=== PATIENT | female | born 1940 | race Caucasian/White ===

== ENCOUNTER 2016-10-04 12:17 | Emergency (ER) | payer MEDICARE, OTHER ==
[~2016-10-04] VITALS: Ht 154.9 cm; Wt 86.0 kg
[~2016-10-04 12:17] MED LIST: ACET325T PO; ASPI81TA81; ATOR10TA15 PO; CALCCHW25 CHEW; COQ-50CA2; LISI10TA3 PO; MAGN250T14; META48.53 PO; METF500T PO; METO50TA PO; OMEGCAP PO; OMEP20TA PO; PRED5TAB PO; THER650C; VITA100T5 PO
[2016-10-04] MEDS ORDERED: SODIUM CHLOR 0.9% 1000 ML INJ 1,000 ML IV SCH (12:27)
[2016-10-04] MEDS ORDERED: SODIUM CHLORIDE 0.9% FLUSH 10 ML FLUSH IV FLUSH PRN (12:30)
[2016-10-04 12:35] VITALS: RESP 16; O2SAT 95
[2016-10-04 12:45] VITALS: BP 138/69; PULSE 70; RESP 16; TEMP 97.9; O2SAT 98
--- NOTE | 2016-10-04 13:27 | PD ---
HPI Chief Complaint: Abdominal Pain Time Seen by Provider: 12:26 Travel History International Travel<30 days: Yes Contact w/Intl Traveler<30days: Yes Name of Country Traveled to: [place] Traveled to known affect area: No History of Present Illness HPI 76-year-old female arrives complaining of left lower quadrant pain for about 5 days or so. She just returned from a cruise. Pain is worse with palpation. She denies fever. She states it feels similar to diverticulitis episodes from the past. Timing constant. PFSH Past Medical History Hx Anticoagulant Therapy: No Arthritis: Yes (POLYMYALGIA RHEUMATICA) Asthma: No Autoimmune Disease: No Blood Disorders: No Heart Rhythm Problems: No Cancer: No Cardiovascular Problems: No High Cholesterol: Yes Chemotherapy: No Chest Pain: No Congestive Heart Failure: No COPD: Yes Cerebrovascular Accident: No Diabetes: Yes Patient Takes Glucophage: Yes Diminished Hearing: No Diverticulitis: Yes Endocrine: No Gastrointestinal Disorders: Yes (DIVERTICULITIS) GERD: Yes Genitourinary: Yes (UTI) Headaches: Yes Hepatitis: No Hiatal Hernia: Yes Hypertension: Yes Immune Disorder: No Kidney Stones: No Musculoskeletal: Yes (PROTRUDING L4-L5, DEGENERATIVE JOINT DISEASE) Neurologic: Yes Psychiatric: No Reproductive: No Respiratory: Yes (COPD) Migraines: No Renal Failure: No Seizures: No Sleep Apnea: No Thyroid Disease: No Ulcer: No Tetanus Vaccination: > 5 Years Influenza Vaccination: Yes PNEUMOCCOCAL Vaccine (Year): 2009 ?: Not Tubal Ligation: Yes Past Surgical History Abdominal Surgery: Yes (Colonectomy) AICD: No Appendectomy: Yes Arteriovenous Shunt: No Body Medical Devices: NONE Cardiac Surgery: No Section: Yes Ear Surgery: No Endocrine Surgery: No Eye Surgery: Yes (garo cataract surgery) Genitourinary Surgery: Yes (bladder tuck) Gynecologic Surgery: Yes (hysterectomy) Hysterectomy: Yes Insulin Pump: No Joint Replacement: No Oral Surgery: Yes (t and a) Pacemaker: No Thoracic Surgery: No Tonsillectomy: Yes (AND ADNOIDS) Other Surgery: Yes Social History Alcohol Use: No Tobacco Use: No Substance Use: No Allergies-Medications (Allergen,Severity, Reaction): Coded Allergies: Adhesives (Verified Allergy, Severe, skin turns red, 10/04/16) Codeine (Verified Allergy, Severe, gi upset, 10/04/16) Darvon (Verified Allergy, Severe, 10/04/16) n/v Dilaudid (Verified Allergy, Severe, 10/04/16) Morphine (Verified Allergy, Severe, headaches, 10/04/16) Naproxen (Verified Allergy, Severe, 10/04/16) Percocet (Verified Allergy, Severe, headache, 10/04/16) Sulfa (Verified Allergy, Severe, hives, 10/04/16) Amoxicillin (Verified Allergy, Unknown, UNKNOWN, 10/04/16) UNABLE TO OBTAIN Cefuroxime sodium (Verified Allergy, Unknown, 10/04/16) Reported Meds & Prescriptions Reported Meds & Active Scripts Active Flagyl (Metronidazole) 500 Mg Tab 500 Mg PO TID 10 Days Cipro (Ciprofloxacin HCl) 500 Mg Tab 500 Mg PO BID 10 Days Reported Theracran Hp (Cranberry (Vaccinium Macrocarpon)) 180 Mg Cap Aspir-81 (Aspirin) 81 Mg Tabdr Magnesium Oxide 250 Mg Tab Coq-10 (Coenzyme Q10 (Ubidecarenone)) 50 Mg Cap Vitamin C (Ascorbic Acid) 100 Mg Tab 100 Mg PO Acetaminophen 325 Mg Tab 325 Mg PO Q4-6H PRN Metamucil Original Texture (Psyllium Hydrophilic Mucilloid) 48.57 % Pow 1 Scoop PO TID PRN 1 rounded TEASPOON in 8 oz of liquid at the first sign of irregularity. [place]-3 Fish Oil/Vitamin (Fish Oil-Cholecalciferol) 1,000-1,000 Mg Cap 1 Cap PO DAILY Calcium + D & K (Calcium-Vitamins D & K) 500-1,000-40 Mg-Unit-Mcg Chew 1 Tab CHEW Atorvastatin (Atorvastatin Calcium) 10 Mg Tab 10 Mg PO HS Prednisone 5 Mg Tab 5 Mg PO DAILY Metformin (Metformin HCl) 500 Mg Tab 500 Mg PO BIDPC With meals Lisinopril 10 Mg Tab 10 Mg PO DAILY Metoprolol Tartrate 50 Mg Tab 50 Mg PO BID Omeprazole 20 Mg Tab 20 Mg PO DAILY Review of Systems Except as stated in HPI: all other systems reviewed are Neg General / Constitutional: No: Fever Gastrointestinal: Positive: Abdominal Pain Physical Exam Narrative GENERAL: 75-year-old female pleasant well-nourished well-developed, no acute distress. SKIN: Focused skin assessment warm/dry. HEAD: Atraumatic. Normocephalic. EYES: Pupils equal and round. No scleral icterus. No injection or drainage. ENT: No nasal bleeding or discharge. Mucous membranes pink and moist. NECK: Trachea midline. No JVD. CARDIOVASCULAR: Regular rate and rhythm. No murmur appreciated. RESPIRATORY: No accessory muscle use. Clear to auscultation. Breath sounds equal bilaterally. GASTROINTESTINAL: Soft. Tenderness to palpation left lower quadrant. MUSCULOSKELETAL: No obvious deformities. No clubbing. No cyanosis. No edema. NEUROLOGICAL: Awake and alert. No obvious cranial nerve deficits. Motor grossly within normal limits. Normal speech. PSYCHIATRIC: Appropriate mood and affect; insight and judgment normal. Data Data Last Documented VS Vital Signs Date Time Temp Pulse Resp B/P Pulse Ox O2 Delivery O2 Flow Rate FiO2 10/04/16 15:00 97.2 68 16 138/65 100 Room Air VS reviewed Orders Complete Blood Count With Diff (10/04/16 12:27) Comprehensive Metabolic Panel (10/04/16 12:27) Lipase (10/04/16 12:27) Urinalysis - C+S If Indicated (10/04/16 12:27) Iv Access Insert/Monitor (10/04/16 12:27) Ecg Monitoring (10/04/16 12:27) Oximetry (10/04/16 12:27) Sodium Chlor 0.9% 1000 Ml Inj (Ns 1000 M (10/04/16 12:27) Sodium Chloride 0.9% Flush (Ns Flush) (10/04/16 12:30) Ct Abd/Pel W Iv Contrast(Rout) (10/04/16 14:49) Ciprofloxacin (Cipro) (10/04/16 15:00) Metronidazole (Flagyl) (10/04/16 15:00) Iohexol 350 Inj (Omnipaque 350 Inj) (10/04/16 15:22) Labs Laboratory Tests Test 10/04/16 12:10 White Blood Count 11.8 TH/MM3 Red Blood Count 4.06 MIL/MM3 Hemoglobin 11.9 GM/DL Hematocrit 36.9 % Mean Corpuscular Volume 90.9 FL Mean Corpuscular Hemoglobin 29.4 PG Mean Corpuscular Hemoglobin 32.4 % Concent Red Cell Distribution Width 14.4 % Platelet Count 272 TH/MM3 Mean Platelet Volume 8.9 FL Neutrophils (%) (Auto) 78.0 % Lymphocytes (%) (Auto) 12.9 % Monocytes (%) (Auto) 7.2 % Eosinophils (%) (Auto) 1.1 % Basophils (%) (Auto) 0.8 % Neutrophils # (Auto) 9.2 TH/MM3 Lymphocytes # (Auto) 1.5 TH/MM3 Monocytes # (Auto) 0.8 TH/MM3 Eosinophils # (Auto) 0.1 TH/MM3 Basophils # (Auto) 0.1 TH/MM3 CBC Comment DIFF FINAL Differential Comment Urine Color LIGHT-YELLOW Urine Turbidity CLEAR Urine pH 5.5 Urine Specific [place] 1.005 Urine Protein NEG mg/dL Urine Glucose (UA) NEG mg/dL Urine Ketones NEG mg/dL Urine Occult Blood NEG Urine Nitrite NEG Urine Bilirubin NEG Urine Urobilinogen LESS THAN 2.0 MG/DL Urine Leukocyte Esterase NEG Urine Squamous Epithelial <1 /hpf Cells Microscopic Urinalysis Comment CULT NOT INDICATED Sodium Level 137 MEQ/L Potassium Level 5.0 MEQ/L Chloride Level 108 MEQ/L Carbon Dioxide Level 19.6 MEQ/L Anion Gap 9 MEQ/L Blood Urea Nitrogen 27 MG/DL Creatinine 0.96 MG/DL Estimat Glomerular Filtration 57 ML/MIN Rate Random Glucose 123 MG/DL Calcium Level 9.4 MG/DL Total Bilirubin 0.3 MG/DL Aspartate Amino Transf 33 U/L (AST/SGOT) Alanine Aminotransferase 31 U/L (ALT/SGPT) Alkaline Phosphatase 89 U/L Total Protein 7.5 GM/DL Albumin 3.9 GM/DL Lipase 293 U/L [facility] Medical Decision Making Medical Screen Exam Complete: Yes Emergency Medical Condition: Yes Medical Record Reviewed: Yes Differential Diagnosis Constipation, Gastritis, Acute Cholecystitis, Biliary Colic, Pancreatitis, BEST , Hepatitis, Bowel Obstruction, Cystitis, Mesenteric Ischemia, AAA, Appendicitis , Renal Stone/Hydronephrosis, GERD, perforated viscous Narrative Course CBC & BMP Diagram 10/04/16 12:10 LFTs normal Lipase 293 UA: No UTI Last 24 hours Impressions Abdomen/Pelvis CT 10/04/16 1449 Signed Impressions: Service Date/Time: Thursday, October 04, 2016 15:11 - CONCLUSION: Chronic vascular calcifications and stool. Smiley Payne MD The patient is resting comfortably and feels better, is alert and in no distress. The patients results and examination findings were discussed. The repeat examination is unremarkable and benign. The history, exam, diagnostic testing, and current condition do not suggest any significant pathology to warrant further testing, continued ED treatment, admission, or surgical evaluation at this point. The vital signs have been stable. The patient does not have uncontrollable pain, intractable vomiting, or other significant symptoms. The patient's condition is stable and appropriate for discharge. The patient will pursue further outpatient evaluation with a primary care physician or other designated or consulting physician as indicated in the discharge instructions. The patient expressed understanding and was agreeable with this plan. Diagnosis Primary Impression: Abdominal pain Qualified Code: R10.32 - Left lower quadrant pain Additional Impression: Constipation Qualified Code: K59.00 - Constipation, unspecified constipation type Referrals: Primary Care Physician 2 days Additional Instructions: You have a choice when it comes to health care, and we are glad that you chose [facility]. Hopefully, we have met your expectations on today's visit. You are welcome to return to [facility] at any time, as we are committed to meeting the health care needs of our community. Med/Other Pt SpecificInfo: Prescription(s) given Disposition: DISCHARGE HOME Condition: Max uLther MD Oct 04, 2016 13:27
[2016-10-04 13:43] LABS: BLOOD, URINE NEG (NEG); GLUCOSE,URINE NEG (NEG); KETONE, URINE NEG (NEG); NITRITE,URINE NEG (NEG); PH, URINE 5.5 (5.0-8.5); SQUAMOUS EPITHELIAL CELL URINE <1 /hpf (0-5); URINE COLOR LIGHT-YELLOW (YELLW/STRAW)
[2016-10-04 13:45] LABS: COMMENT (UR) CULT NOT INDICATED; CULTURE IF INDICATED CULT NOT INDICATED
[2016-10-04 13:47] LABS: AUTOMATED NEUTROPHIL # 9.2 TH/MM3 (1.8-7.7); BASOPHIL # 0.1 TH/MM3 (0-0.2); BASOPHIL % 0.8 % (0.0-2.0); EOSINOPHIL # 0.1 TH/MM3 (0-0.4); EOSINOPHIL % 1.1 % (0.0-4.0); HEMATOCRIT 36.9 % (35.0-46.0); HEMO FLAGS DIFF FINAL; LYMPH % 12.9 % (9.0-44.0); LYMPHOCYTE # 1.5 TH/MM3 (1.0-4.8); MEAN CELL VOLUME 90.9 FL (80.0-100.0); MEAN CORPUSCULAR HEMOGLOBIN 29.4 PG (27.0-34.0); MEAN CORPUSCULAR HGB CONC 32.4 % (32.0-36.0); MONO % 7.2 % (0.0-8.0); PLATELET COUNT 272 TH/MM3 (150-450); RED BLOOD COUNT 4.06 MIL/MM3 (4.00-5.30); RED CELL DISTRIBUTION WIDTH 14.4 % (11.6-17.2); WHITE BLOOD COUNT 11.8 TH/MM3 (4.0-11.0)
[2016-10-04] MEDS ORDERED: CIPR-9 PO (14:14)
[2016-10-04] MEDS ORDERED: METR-1 PO (14:14)
[2016-10-04 14:24] LABS: ALKALINE PHOSPHATASE 89 U/L (45-117); ALT (GPT) 31 U/L (10-53); TOTAL BILIRUBIN ADULT 0.3 MG/DL (0.2-1.0)
[2016-10-04 14:34] LABS: ANION GAP 9 MEQ/L (5-15); AST (GOT) 33 U/L (15-37); BICARBONATE 19.6 MEQ/L (21.0-32.0); BLOOD UREA NITROGEN 27 MG/DL (7-18); CHLORIDE 108 MEQ/L (98-107); GLOMERULAR FILTRATION RATE 57 ML/MIN (>89); SODIUM (NA) 137 MEQ/L (136-145)
[2016-10-04 15:00] VITALS: BP 138/65; PULSE 68; RESP 16; TEMP 97.2; O2SAT 100
[2016-10-04] MEDS ORDERED: metroNIDAZOLE 500 MG TAB PO ONE (15:00)
[2016-10-04] MEDS ORDERED: CIPROFLOXACIN 500 MG TAB PO ONE (15:00)
[2016-10-04] MEDS ORDERED: IOHEXOL 350 MG/ML 10 ML VIAL (for RAD DIAG) IV ONE (15:22)
--- NOTE | 2016-10-04 15:41 | RADRPT ---
EXAM DATE/TIME: 10/04/2016 15:11 [facility] COMPARISON: CT ABDOMEN & PELVIS W CONTRAST, November 09, 2010, 12:34. INDICATIONS : Left lower quadrant pain for five days. IV CONTRAST: 92 cc Omnipaque 350 (iohexol) IV ORAL CONTRAST: No oral contrast ingested. RADIATION DOSE: 9.96 CTDIvol (mGy) MEDICAL HISTORY : Hypertension. Diverticulitis. Hernia, hiatal. SURGICAL HISTORY : Appendectomy. Hysterectomy.Bladder surgery. Lumbar surgery. ENCOUNTER: Initial ACUITY: 4 - 6 days PAIN SCALE: 7/10 LOCATION: Left lower quadrant TECHNIQUE: Volumetric scanning of the abdomen and pelvis was performed. Using automated exposure control and adjustment of the mA and/or kV according to patient size, radiation dose was kept as low as reasonably achievable to obtain optimal diagnostic quality images. FINDINGS: CT Abdomen: The liver, spleen, pancreas, right kidney, adrenals are unremarkable. There is no evidenc e for any appreciable pathological adenopathy, free fluid, or bowel obstruction. Subcentimeter calcif ied one is present in right middle lobe. Approximate 1.2 cm simple cyst is present in the left kidney not present previously, however has the appearance of a simple cyst. Chronic vascular calcifications are present involving the aorta, iliac arteries without any significant stenosis or aneurysmal dilat ations for technique. CT pelvis: There is no evidence for mass, abscess formation, or any significant adenopathy within the pelvis. There are postsurgical changes at L4-5 and L5-S1 with mild anterior wedging of L3. There is moderate amount of stool throughout the colon. CONCLUSION: Chronic vascular calcifications and stool. Smiley Payne MD on October 04, 2016 at 15:35 Board Certified Radiologist. This report was verified electronically.
== END 2016-10-04 18:56 | disposition home or self-care (01) ==
LOC: NEPC 12:17
DX: R10.32 Left lower quadrant pain (principal); K59.00 Constipation, unspecified; E11.9 Type 2 diabetes mellitus without complications; I10 Essential (primary) hypertension; E78.00 Pure hypercholesterolemia, unspecified; Z79.84 Long term (current) use of oral hypoglycemic drugs; Z87.39 Personal history of other diseases of the musculoskeletal system and connective tissue; Z87.09 Personal history of other diseases of the respiratory system; Z87.19 Personal history of other diseases of the digestive system; Z87.448 Personal history of other diseases of urinary system; Z86.69 Personal history of other diseases of the nervous system and sense organs
CPT/HCPCS: 74177; 80053; 81001; 83690; 85025; 96360; 96361; 99284; J7030; Q9967

== ENCOUNTER 2017-06-17 19:24 | Emergency (ER) | payer MEDICARE, OTHER ==
[~2017-06-17 19:24] MED LIST changes: -OMEP20TA PO; +OMEP20TA93 PO
[2017-06-17 19:27] VITALS: BP 184/78; PULSE 81; RESP 16; TEMP 97.9; O2SAT 97
[2017-06-17 20:30] LABS: AUTOMATED NEUTROPHIL # 5.4 TH/MM3 (1.8-7.7); BASOPHIL # 0.1 TH/MM3 (0-0.2); BASOPHIL % 1.2 % (0.0-2.0); EOSINOPHIL # 0.3 TH/MM3 (0-0.4); EOSINOPHIL % 3.5 % (0.0-4.0); HEMOGLOBIN 10.9 GM/DL (11.6-15.3); LYMPH % 22.4 % (9.0-44.0); LYMPHOCYTE # 1.9 TH/MM3 (1.0-4.8); MEAN CELL VOLUME 92.8 FL (80.0-100.0); MEAN CORPUSCULAR HEMOGLOBIN 30.8 PG (27.0-34.0); MEAN CORPUSCULAR HGB CONC 33.1 % (32.0-36.0); MEAN PLATELET VOLUME 8.9 FL (7.0-11.0); MONO % 10.2 % (0.0-8.0); MONOCYTE # 0.9 TH/MM3 (0-0.9); NEUT % 62.7 % (16.0-70.0); PLATELET COUNT 257 TH/MM3 (150-450); RED BLOOD COUNT 3.55 MIL/MM3 (4.00-5.30); RED CELL DISTRIBUTION WIDTH 13.4 % (11.6-17.2); WHITE BLOOD COUNT 8.7 TH/MM3 (4.0-11.0)
--- NOTE | 2017-06-17 20:38 | RADRPT ---
EXAM DATE/TIME: 06/17/2017 20:14 [facility] COMPARISON: CHEST PA & LAT, January 27, 2015, 13:45. INDICATIONS : Shortness of breath for 4 days MEDICAL HISTORY : Hypertension. Hypercholesterolemia. Chronic obstructive pulmonary disease. SURGICAL HISTORY : None. ENCOUNTER: Initial ACUITY: 4 - 6 days PAIN SCORE: 0/10 LOCATION: Bilateral chest FINDINGS: PA and lateral views of the chest demonstrate the lungs to be symmetrically aerated without evidence of mass, infiltrate or effusion. The cardiomediastinal contours are unremarkable. Osseous structure s are intact. CONCLUSION: Normal examination. Evan Collier MD on June 17, 2017 at 20:35 Board Certified Radiologist. This report was verified electronically.
[2017-06-17 20:42] LABS: ALBUMIN 3.8 GM/DL (3.4-5.0); AST (GOT) 44 U/L (15-37); BICARBONATE 23.6 MEQ/L (21.0-32.0); BLOOD UREA NITROGEN 19 MG/DL (7-18); CHLORIDE 102 MEQ/L (98-107); CREATININE 1.31 MG/DL (0.50-1.00); GLOMERULAR FILTRATION RATE 40 ML/MIN (>89); GLUCOSE,RANDOM 175 MG/DL (74-106); MAGNESIUM 1.5 MG/DL (1.5-2.5); SODIUM (NA) 136 MEQ/L (136-145)
[2017-06-17 20:46] LABS: ALKALINE PHOSPHATASE 107 U/L (45-117); ALT (GPT) 65 U/L (10-53); TOTAL BILIRUBIN ADULT 0.4 MG/DL (0.2-1.0); TOTAL PROTEIN 7.2 GM/DL (6.4-8.2)
[2017-06-17 23:18] VITALS: BP 111/53; PULSE 73; RESP 18; O2SAT 96
--- NOTE | 2017-06-17 23:25 | PD ---
HPI Chief Complaint: Medical Clearance Time Seen by Provider: 23:02 Travel History International Travel<30 days: No Contact w/Intl Traveler<30days: No Traveled to known affect area: No History of Present Illness HPI 76-year-old female complains of shortness of breath, swelling of the legs, left low quadrant abdominal pain. Patient states that she has intermittent short of breath recently. Patient also has history of intermittent lower extremity swelling recently. Patient denies any coughing congestion fever chills. Patient denies any chest pain. Patient states that she has recurrent abdominal pain especially left lower quadrant abdominal pain for the past 7 months. Patient has been seen in emergency room and personal physician. Patient states that etiology of the abdominal pains unknown. Patient was seen by personal physician 2 days ago and given prescription for Cipro and Flagyl. Patient has been taking ciprofloxacin directed. Patient states that she had persistent abdominal pain despite taking the medication. Patient noticed a streaking rash on the lower abdominal wall for the past several days. Patient denies any injury to the area. Patient denies any history of CHF. Patient denies any history of cardiac disease. Patient has history of diverticulitis in the past. PFSH Past Medical History Hx Anticoagulant Therapy: No Arthritis: Yes (POLYMYALGIA RHEUMATICA) Asthma: No Autoimmune Disease: No Blood Disorders: No Heart Rhythm Problems: No Cancer: No Cardiovascular Problems: No High Cholesterol: Yes Chemotherapy: No Chest Pain: No Congestive Heart Failure: No COPD: Yes Cerebrovascular Accident: No Diabetes: Yes Diminished Hearing: No Diverticulitis: Yes Endocrine: No Gastrointestinal Disorders: Yes (DIVERTICULITIS) GERD: Yes Genitourinary: Yes (UTI) Headaches: Yes Hepatitis: No Hiatal Hernia: Yes Hypertension: Yes Immune Disorder: No Kidney Stones: No Musculoskeletal: Yes (PROTRUDING L4-L5, DEGENERATIVE JOINT DISEASE) Neurologic: Yes Psychiatric: No Reproductive: No Respiratory: Yes (COPD) Migraines: No Renal Failure: No Seizures: No Sleep Apnea: No Thyroid Disease: No Ulcer: No PNEUMOCCOCAL Vaccine (Year): 2009 Tubal Ligation: Yes Past Surgical History Abdominal Surgery: Yes (Colonectomy) AICD: No Appendectomy: Yes Arteriovenous Shunt: No Body Medical Devices: NONE Cardiac Surgery: No Section: Yes Ear Surgery: No Endocrine Surgery: No Eye Surgery: Yes (garo cataract surgery) Genitourinary Surgery: Yes (bladder tuck) Gynecologic Surgery: Yes (hysterectomy) Hysterectomy: Yes Insulin Pump: No Joint Replacement: No Oral Surgery: Yes (t and a) Pacemaker: No Thoracic Surgery: No Tonsillectomy: Yes (AND ADNOIDS) Other Surgery: Yes Social History Alcohol Use: No Tobacco Use: No Substance Use: No Allergies-Medications (Allergen,Severity, Reaction): Coded Allergies: Sulfa (Sulfonamide Antibiotics) (Unverified Allergy, Severe, hives, ) acetaminophen (Unverified Allergy, Severe, headache, 01/20/17) adhesive (Unverified Allergy, Severe, skin turns red, 01/20/17) codeine (Unverified Allergy, Severe, gi upset, 01/20/17) hydromorphone (Unverified Allergy, Severe, 01/20/17) morphine (Unverified Allergy, Severe, headaches, 01/20/17) naproxen (Unverified Allergy, Severe, 01/20/17) oxycodone (Unverified Allergy, Severe, headache, 01/20/17) propoxyphene (Unverified Allergy, Severe, 01/20/17) n/v amoxicillin (Unverified Allergy, Unknown, UNKNOWN, 01/20/17) UNABLE TO OBTAIN cefuroxime (Unverified Allergy, Unknown, 01/20/17) Reported Meds & Prescriptions Reported Meds & Active Scripts Active Reported Theracran Hp (Cranberry (Vaccinium Macrocarpon)) 180 Mg Cap Aspir-81 (Aspirin) 81 Mg Tabdr Magnesium Oxide 250 Mg Tab Coq-10 (Coenzyme Q10 (Ubidecarenone)) 50 Mg Cap Vitamin C (Ascorbic Acid) 100 Mg Tab 100 Mg PO Acetaminophen 325 Mg Tab 325 Mg PO Q4-6H PRN Metamucil Original Texture (Psyllium Hydrophilic Mucilloid) 48.57 % Pow 1 Scoop PO TID PRN 1 rounded TEASPOON in 8 oz of liquid at the first sign of irregularity. [place]-3 Fish Oil/Vitamin (Fish Oil-Cholecalciferol) 1,000-1,000 Mg Cap 1 Cap PO DAILY Calcium + D & K (Calcium-Vitamins D & K) 500-1,000-40 Mg-Unit-Mcg Chew 1 Tab CHEW Atorvastatin (Atorvastatin Calcium) 10 Mg Tab 10 Mg PO HS Prednisone 5 Mg Tab 5 Mg PO DAILY Metformin (Metformin HCl) 500 Mg Tab 500 Mg PO BIDPC With meals Lisinopril 10 Mg Tab 10 Mg PO DAILY Metoprolol Tartrate 50 Mg Tab 50 Mg PO BID Omeprazole 20 Mg Tab 20 Mg PO DAILY Review of Systems General / Constitutional: No: Fever Eyes: No: Visual changes HENT: No: Headaches Cardiovascular: No: Chest Pain or Discomfort Respiratory: Positive: Shortness of Breath Gastrointestinal: Positive: Abdominal Pain Genitourinary: No: Dysuria Musculoskeletal: No: Pain Skin: No Rash Neurologic: No: Weakness Psychiatric: No: Depression Endocrine: No: Polydipsia Hematologic/Lymphatic: No: Easy Bruising Physical Exam Narrative GENERAL: Well-nourished, well-developed patient. SKIN: Focused skin assessment warm/dry. HEAD: Normocephalic. EYES: No scleral icterus. No injection or drainage. NECK: Supple, trachea midline. No JVD or lymphadenopathy. CARDIOVASCULAR: Regular rate and rhythm without murmurs, gallops, or rubs. RESPIRATORY: Breath sounds equal bilaterally. No accessory muscle use. GASTROINTESTINAL: Abdomen soft, nondistended. Patient had mild tenderness on palpation lower abdomen especially left lower quadrant of the abdomen. No rebound tenderness or no mass. Patient has diffuse macular rash a lower abdominal wall area. No redness no heat noted discharge. MUSCULOSKELETAL: No cyanosis. Patient had trace edema lower extremity. No calf tenderness. No evidence of DVT. BACK: Nontender without obvious deformity. No CVA tenderness. Neurologic exam normal. Data Data Last Documented VS Vital Signs Date Time Temp Pulse Resp B/P (MAP) Pulse Ox O2 Delivery O2 Flow Rate FiO2 06/17/17 23:18 73 18 111/53 (72) 96 Room Air 06/17/17 19:27 97.9 Orders Orders Complete Blood Count With Diff (06/17/17 19:53) Comprehensive Metabolic Panel (06/17/17 19:53) B-Type Natriuretic Peptide (06/17/17 19:53) Act Partial Throm Time (Ptt) (06/17/17 19:53) Prothrombin Time / Inr (Pt) (06/17/17 19:53) Magnesium (Mg) (06/17/17 19:53) Electrocardiogram (06/17/17 19:53) Chest, Pa & Lat (06/17/17 19:53) Ct Abd/Pel W Iv Contrast(Rout) (06/17/17 23:11) Iodixanol 320 Inj (Rad Ct) (Visipaque 32 (06/17/17 23:58) Labs Laboratory Tests Test 06/17/17 20:00 White Blood Count 8.7 TH/MM3 Red Blood Count 3.55 MIL/MM3 Hemoglobin 10.9 GM/DL Hematocrit 33.0 % Mean Corpuscular Volume 92.8 FL Mean Corpuscular Hemoglobin 30.8 PG Mean Corpuscular Hemoglobin Concent 33.1 % Red Cell Distribution Width 13.4 % Platelet Count 257 TH/MM3 Mean Platelet Volume 8.9 FL Neutrophils (%) (Auto) 62.7 % Lymphocytes (%) (Auto) 22.4 % Monocytes (%) (Auto) 10.2 % Eosinophils (%) (Auto) 3.5 % Basophils (%) (Auto) 1.2 % Neutrophils # (Auto) 5.4 TH/MM3 Lymphocytes # (Auto) 1.9 TH/MM3 Monocytes # (Auto) 0.9 TH/MM3 Eosinophils # (Auto) 0.3 TH/MM3 Basophils # (Auto) 0.1 TH/MM3 CBC Comment DIFF FINAL Differential Comment Prothrombin Time 10.0 SEC Prothromb Time International Ratio 1.0 RATIO Activated Partial Thromboplast Time 21.5 SEC Blood Urea Nitrogen 19 MG/DL Creatinine 1.31 MG/DL Random Glucose 175 MG/DL Total Protein 7.2 GM/DL Albumin 3.8 GM/DL Calcium Level 9.0 MG/DL Magnesium Level 1.5 MG/DL Alkaline Phosphatase 107 U/L Aspartate Amino Transf (AST/SGOT) 44 U/L Alanine Aminotransferase (ALT/SGPT) 65 U/L Total Bilirubin 0.4 MG/DL Sodium Level 136 MEQ/L Potassium Level 4.2 MEQ/L Chloride Level 102 MEQ/L Carbon Dioxide Level 23.6 MEQ/L Anion Gap 10 MEQ/L Estimat Glomerular Filtration Rate 40 ML/MIN B-Type Natriuretic Peptide 27 PG/ML MDM Medical Decision Making Medical Screen Exam Complete: Yes Emergency Medical Condition: Yes Medical Record Reviewed: Yes Interpretation(s) Last Impressions Abdomen/Pelvis CT 06/17/17 5589 Signed Impressions: Service Date/Time: Saturday, June 17, 2017 23:36 - CONCLUSION: 1. No evidence of acute abdominal or pelvic process. No masses are identified. 2. Diverticulosis without evidence of diverticulitis. 3. Mild bladder prolapse Gabriele Black MD Chest X-Ray 06/17/[id number] Signed Impressions: Service Date/Time: Saturday, June 17, 2017 20:14 - CONCLUSION: Normal examination. Evan Collier MD 12:39 AM. CBC within normal limit. BUN 19. Creatinine 1.31. GFR 40. AST 44. ALT 65. BNP 27. Differential Diagnosis Differential diagnosis including musculoskeletal, colitis, diverticulitis, UTI, pyelonephritis, nephrolithiasis, dermatitis, cellulitis, dependent edema, CHF. Narrative Course 76-year-old female with recurrent left low quadrant abdominal pain. History of diverticulitis. Patient also, shortness of breath, lower extremity edema, rash on the abdominal wall. Diagnosis Primary Impression: Abdominal pain Qualified Codes: R10.30 - Lower abdominal pain, unspecified Additional Impressions: Dependent edema Dermatitis Patient Instructions: General Instructions Additional Instructions: Continue with medications. Follow-up with personal physician and chain carrier. Med/Other Pt SpecificInfo: No Change to Meds Disposition: 01 DISCHARGE HOME Condition: Stable Job Robles MD Jun 17, 2017 23:25
[2017-06-17] MEDS ORDERED: IODIXANOL 320 MG/ML 10 ML VIAL (for Rad CT) IVCONTRAST ONE (23:58)
--- NOTE | 2017-06-18 00:11 | RADRPT ---
EXAM DATE/TIME: 06/17/2017 23:36 [facility] COMPARISON: CT ABDOMEN & PELVIS W CONTRAST, October 04, 2016, 15:11. INDICATIONS : Left lower quadrant pain. IV CONTRAST: 50 cc Visipaque (iodixanol) IV ORAL CONTRAST: No oral contrast ingested. RADIATION DOSE: 9.96 CTDIvol (mGy) MEDICAL HISTORY : Diverticulitis. Hernia, hiatal. SURGICAL HISTORY : Hysterectomy. Appendectomy.Lumbar fusion ENCOUNTER: Initial ACUITY: 1 day PAIN SCALE: 5/10 LOCATION: Left lower quadrant TECHNIQUE: Volumetric scanning of the abdomen and pelvis was performed. Using automated exposure control and ad justment of the mA and/or kV according to patient size, radiation dose was kept as low as reasonably achievable to obtain optimal diagnostic quality images. DICOM format image data is available electro nically for review and comparison. FINDINGS: There is parenchymal scarring on the right. No pulmonary nodules are identified. The liver and spleen are normal in size and no focal defects are identified. The gallbladder and pancreas are unremarkabl e. No intrahepatic or extrahepatic ductal dilatation is seen. The adrenal glands and kidneys appear n ormal bilaterally. No hydronephrosis or mass lesions are identified. Examination of the pelvis demonstrates no evidence of free fluid or pelvic mass. No abnormally enlarg ed inguinal or retroperitoneal lymph nodes are present. The bladder demonstrates mild prolapse. There is a staple line in the sigmoid colon. There is diverticulosis without evidence of diverticulitis. CONCLUSION: 1. No evidence of acute abdominal or pelvic process. No masses are identified. 2. Diverticulosis without evidence of diverticulitis. 3. Mild bladder prolapse Gabriele Black MD on June 18, 2017 at 0:06 Board Certified Radiologist. This report was verified electronically.
== END 2017-06-18 01:23 | disposition home or self-care (01) ==
LOC: NEPE 19:24
DX: R10.32 Left lower quadrant pain (principal); R60.9 Edema, unspecified; L30.9 Dermatitis, unspecified; R06.02 Shortness of breath; R21 Rash and other nonspecific skin eruption; M35.3 Polymyalgia rheumatica; J44.9 Chronic obstructive pulmonary disease, unspecified; E11.9 Type 2 diabetes mellitus without complications; I10 Essential (primary) hypertension; Z79.899 Other long term (current) drug therapy
CPT/HCPCS: 71046; 74177; 80053; 83735; 83880; 85025; 85610; 85730; 99284; Q9967

== ENCOUNTER → 2017-12-03 | Outpatient (CLI) | payer OTHER | LOC: HRSP 12:59 | PROVIDERS: ATTEND Specialist | DX: J44.9 Chronic obstructive pulmonary disease, unspecified (principal); R06.00 Dyspnea, unspecified; R09.02 Hypoxemia | CPT/HCPCS: 36600; 82805; 94060; 94618; 94726; 94729 ==